=== PATIENT | female | born 1980 | race Caucasian/White ===

== ENCOUNTER 2016-08-09 18:46 | Inpatient (IN) | payer SELFPAY ==
[2016-08-09] MEDS: Lactated Ringer's 1,000 ML IV SCH (19:20)
[2016-08-09 19:25] VITALS: BMI 31.9
[2016-08-09 20:00] LABS: BASO % 0.2 % (0.0-2.0); EOS # 0.1 K/uL (0.0-0.7); EOS % 0.5 % (0.0-4.0); HEMATOCRIT 34.7 % (34.0-47.0); LYMPH # 2.5 K/uL (1.0-4.3); LYMPH % 22.8 % (20.0-40.0); MEAN CELL VOLUME 83.1 fL (81.0-99.0); MEAN CORPUSCULAR HEMOGLOBIN 27.6 pg (27.0-31.0); MEAN CORPUSCULAR HGB CONC 33.2 g/dL (33.0-37.0); MEAN PLATELET VOLUME 6.8 fL (7.2-11.7); MONO # 0.9 K/uL (0.0-0.8); MONO % 8.1 % (0.0-10.0); NRBC % 0.1 % (0.0-2.0); RED CELL DISTRIBUTION WIDTH 14.1 % (11.5-14.5); WHITE BLOOD COUNT 10.9 K/uL (4.8-10.8)
[2016-08-09 20:11] LABS: CHLORIDE 104 mmol/L (98-107)
--- NOTE | 2016-08-09 20:11 | OBADHP ---
Datetime: 08/09/2016 19:15 Admit Comment, IP Provider: Chief complaint-cramping, induction of labor HPI 35 y/o at40 wga here for idnuction of labor.patient denies nausea, vomiting, headache, ch est pain, shortness of breath.States that she is feeling cramps for last 3 days course AMA PMH denies PSH denies OBGYN HX ; NVDX1.Hx of 4th degree laceration.Weight 3.2 kg at Social hx denies tobacco,alcohol or illicit drug use Exam see exam section A/P 35 y/o at 40 wga being with c/o cramps.No active labor.Patient scheduled for induction du e to postdates -admit -see orders 8 pm Cervidil placed for cervival ripening continue to monitor closely Dr Turner aware Pelvic Type - PN: Adequate Extremities - PN: Normal Abdomen - PN: Normal Back - PN: Normal Lungs - PN: Normal Heart - PN: Normal Neurologic - PN: Normal General - PN: Normal Weight - Estimated: 3200 Presentation-Admit: Vertex Contraction Comments Provider: occ Gestation - Est Wks by US: 40.0 Vital Signs Provider: Reviewed; Within Normal Limits IP Chief Complaint: Uterine contractions FHR Category Provider Fetus A: Category I Genitourinary Exam: Normal DTRs - PN: Normal EGA AdmitDate IP: 40.0 IP Adm Impression: Postterm, intrauterine IP Admit Plan: Admit to unit; Initiate labor protocol
[2016-08-09 20:12] LABS: POTASSIUM 3.4 mmol/L (3.6-5.2); SODIUM 135 mmol/L (132-148)
[2016-08-09 20:14] LABS: GFR AFRICAN-AMERICAN > 60
[2016-08-09 20:15] LABS: ALKALINE PHOSPHATASE 90 U/L (38-126); ALT/SGPT 20 U/L (9-52); AST/SGOT 22 U/L (14-36); BILIRUBIN,TOTAL 0.5 mg/dL (0.2-1.3); BLOOD UREA NITROGEN 9 mg/dL (7-17); CALCIUM 8.9 mg/dl (8.6-10.4); CARBON DIOXIDE 20 mmol/L (22-30); GLUCOSE,RANDOM 104 mg/dL (65-105); TOTAL PROTEIN 6.3 g/dL (6.3-8.3)
[2016-08-09 20:20] LABS: RBC URINE < 1 /hpf (0-3); TRANSITIONAL EPITHIAL < 1 /hpf (0-3); URINE BACTERIA RARE (<OCC); URINE BILIRUBIN NEGATIVE (NEGATIVE); URINE BLOOD NEGATIVE (NEGATIVE); URINE COLOR Straw (YELLOW); URINE GLUCOSE (UA) NORMAL (Normal); URINE KETONE NEGATIVE (NEGATIVE); URINE PROTEIN NEGATIVE (NEGATIVE); URINE UROBILINOGEN NORMAL mg/dL (0.2-1.0); WBC URINE < 1 /hpf (0-5)
[2016-08-09 20:23] LABS: URINE LEUKOCYTE ESTERASE NEGATIVE Leu/uL (Negative)
[2016-08-10] MEDS ORDERED: Nalbuphine 20 mg/ml Inj (1 ml) IVP PRN (01:00)
[2016-08-10] MEDS: Lactated Ringer's 1,000 ML IV SCH (03:18)
[2016-08-10] MEDS ORDERED: Bupivacaine HCl 0.25% PF (10 ml) Inj ONE ×2 (07:56→20:13)
[2016-08-10] MEDS ORDERED: Bupivacaine 0.125%/FentaNYL 200 ML EPI ONE (07:57)
[2016-08-10] MEDS ORDERED: Oxytocin 30 UNIT 30 UNITS/500 ML BAG IV ONE (08:46)
[2016-08-10] MEDS ORDERED: ePHEDrine 50 mg/ml Inj ONE (09:12)
--- NOTE | 2016-08-10 09:28 | OBPN ---
Datetime: 08/10/2016 08:37 IP Progress Plan: Continue present management; Augmentation; Anesthesia consult; Anticipate Vaginal Delivery Membranes, Provider: Intact Contraction Comments Provider: 5-7 minutes FHR - Baseline A Provider: 130 Gestation - Est Wks by US: 40w 1d Presentation-Admit: Vertex IP Progress Note Comment: Cervidil due for removal. Patient interested in pain relief; pain scale 6/10 V.E. as above: posterior, medium consistency. Cervidil removed Assessment: 35 y.o. P1, 40w 1d, IOL; S/P cervidil x 1 - response as above. Categroy 1 traicng. Cli nically stable. Plan: 1) Epidural 2) Pitocin for augmentation 3) Anticipate vaginal deliveyr - Dr. Turner made aware Vital Signs Provider: Reviewed; Within Normal Limits NICHD Accel Fetus A IP Provider: 15X15 FHR Category Provider Fetus A: Category I NICHD Variability Prov Fetus A: Moderate 6-25bpm Dilatation, Provider: 2 Effacement, Provider: 30 Station, Provider: -3 NICHD Decel Fetus A IP Provider: None Datetime: 08/09/2016 19:15 Weight - Estimated: 3200
[2016-08-10] MEDS ORDERED: Oxytocin 30 UNIT 30 UNITS/500 ML BAG IV PRN (09:29)
--- NOTE | 2016-08-10 12:25 | OBPN ---
Datetime: 08/10/2016 12:16 IP Progress Impression: Normal progression of labor; Reassuring heart rate IP Informed Consent Obtain: Vaginal Delivery; Induction of Labor; Risks, Benefits and Alternatives D iscussed IP Procedures: Sterile Vag Exam IP Progress Plan: Continue present management; Induction; Anticipate Vaginal Delivery Membranes, Provider: Intact Contraction Comments Provider: Q 3min. FHR - Baseline A Provider: 130 Gestation - Est Wks by US: 40.0 Weight - Estimated: 3400 Presentation-Admit: Vertex IP Progress Note Comment: Labor Induction for Oligohydramnios. Latent Phase of Labor. Reassuring Fet al Status. Continue Pitocin. Patient has Epidural anesthesia. Anticipate . Vital Signs Provider: Reviewed; Within Normal Limits NICHD Accel Fetus A IP Provider: 15X15 FHR Category Provider Fetus A: Category I NICHD Variability Prov Fetus A: Moderate 6-25bpm Dilatation, Provider: 2-3 Effacement, Provider: 50 Station, Provider: -2 NICHD Decel Fetus A IP Provider: None
--- NOTE | 2016-08-10 15:13 | OBPN ---
Datetime: 08/10/2016 15:06 IP Progress Impression: Normal progression of labor IP Procedures: Artificial ROM IP Progress Plan: Continue present management; Augmentation; Anticipate Vaginal Delivery Membranes, Provider: Ruptured Amniotic Fluid Color, Provider: Clear Contraction Comments Provider: 1-2 FHR - Baseline A Provider: 150 Gestation - Est Wks by US: 40w 1d Presentation-Admit: Vertex IP Progress Note Comment: FHR noted for variable decelerations. S/P epidural; denies any pain. (+) v aginal pressure V.E. as above. AROM performed - copious amount of clear amnionic fluid obtained. Pitocin at 20 uni ts/min Assessment: 35 yo P1, 40w 1d, on pitocin - approppriate progress. Category 2 tracing. Observe. Plan: 1) Hold pitocin 2) IV bolus 3) oxygen by face mask 4) observe 5) Anticipate vaginal delivery - will advise Dr. Johnny PANDEY Accel Fetus A IP Provider: 15X15 FHR Category Provider Fetus A: Category II NICHD Variability Prov Fetus A: Moderate 6-25bpm Dilatation, Provider: 4-5 Effacement, Provider: 40 Station, Provider: -3 NICHD Decel Fetus A IP Provider: Variable
--- NOTE | 2016-08-10 15:50 | OBPN ---
Datetime: 08/10/2016 15:46 IP Progress Note Comment: Pitocin discontinued 1513; tracing observed x 30 minutes. Deceleration hav e not recurred Faselin now 150 bpm; (+) accels; (-) decels; (+0 moderate variability Assessment: Category 1 tacing Plan: 1) Restart pitocin 2) Anticipate vaginal delivery
--- NOTE | 2016-08-10 20:18 | OBPN ---
Datetime: 08/10/2016 20:11 IP Progress Impression: Normal progression of labor; Reassuring heart rate IP Informed Consent Obtain: Vaginal Delivery; Risks, Benefits and Alternatives Discussed IP Procedures: Sterile Vag Exam IP Progress Plan: Continue present management; Anticipate Vaginal Delivery Membranes, Provider: Ruptured Amniotic Fluid Color, Provider: Clear Contraction Comments Provider: Q2min. FHR - Baseline A Provider: 140 Gestation - Est Wks by US: 40.0 Weight - Estimated: 3400 Presentation-Admit: Vertex IP Progress Note Comment: Active Labor. Reassuring Status Vital Signs Provider: Reviewed; Within Normal Limits FHR Category Provider Fetus A: Category I NICHD Variability Prov Fetus A: Moderate 6-25bpm Dilatation, Provider: 8 Effacement, Provider: 100 Station, Provider: 0 NICHD Decel Fetus A IP Provider: Early
[2016-08-10] MEDS ORDERED: Lidocaine 2% Inj (20ml) ONE (22:24)
[2016-08-10] MEDS ORDERED: Benzocaine/Menthol 20%-0.5% Topical Spray (60 ml) TOP PRN (23:10)
--- NOTE | 2016-08-10 23:26 | OBDS ---
DELIVERY PERSONNEL Delivery Doctor: Pelon Turner MD Senior Instrumentation Engineer: Isha Alejandro RN Anesthesiologist: Nita Montaon MD MATERNAL INFORMATION Delivery Anesthesia: Epidural Provider Comments: TO A VIABLE BOY, 'S /9. LABOR SUMMARY EDC: 08/09/2016 00:00 No. Babies in Womb: 1 Attempted: No Labor Anesthesia: Epidural LABOR INFORMATION Reason for Induction: Postterm Onset of Labor: 08/10/2016 15:14 Complete Dilatation: 08/10/2016 22:02 Cervical Ripening Agents: Cervidil (Annotations: removed by Dr. Huertsa) Oxytocin: Induction Group B Beta Strep: Negative Steroids Given: None Reason Steroids Not Administered: Not Applicable MEMBRANES Membranes Rupture Method: Artificial Rupture of Membranes: 08/10/2016 15:02 Length of Rupture (hrs): 7.63 Amniotic Fluid Color: Clear Amniotic Fluid Amount: Moderate Amniotic Fluid Odor: Normal STAGES OF LABOR Stage 1 hrs: 6 Stage 1 min: 48 Stage 2 hrs: 0 Stage 2 min: 38 Stage 3 hrs: 0 Stage 3 min: 5 Total Time in Labor hrs: 7 Total Time in Labor min: 31 VAGINAL DELIVERY Episiotomy: Right Mediolateral Laceration Extension: N/A Laceration Type: None Laceration Repair: Yes Laceration Repair Note: Right mediolateral Episiotomy repaired with 2-0 chromic catgut. Sponge Count Correct: Yes BABY A INFORMATION Delivery Date/Time: 08/10/2016 22:40 Method of Delivery: Vaginal Born in Route : No : N/A Forceps: N/A Vacuum Extraction: N/A Shoulder Dystocia : No SHOULDER DYSTOCIA BABY A Delivery Date/Time: 08/10/2016 22:40 PRESENTATION/POSITION BABY A Presentation: Cephalic Cephalic Presentation: Vertex Vertex Position: Left Occipital Anterior Breech Presentation: N/A PLACENTA INFORMATION BABY A Placenta Delivery Time : 08/10/2016 22:45 Placenta Method of Delivery: Spontaneous Placenta Status: Delivered INFANT INFORMATION BABY A Gestational Age at Delivery: 40.1 Gestational Status: Term Infant Outcome : Liveborn Condition : Stable Sex: Male IDENTIFICATION/MEDS BABY A ID Band Number: [id number] ID Band Location: Left Leg; Left Arm Sensor Applied: Yes Sensor Number: [id number] Sensor Location : Cord Clamp Vitamin K Given : Aquamephyton 0.5 mg IM; Left Thigh Erythromycin Given: Given Both Eyes WEIGHT/LENGTH BABY A Infant Birthweight (gms): 3320 Weight (lb): 7 Weight (oz): 5 Infant Length Inches: 19.00 Length cms: 48.3 CORD INFORMATION BABY A No. Cord Vessels: 3 Nuchal Cord : N/A Cord Blood Taken: Yes Infant Suction: None IDENTIFICATION/MEDS BABY B ID Band Number : [id number] ID Band Location : Left Leg; Left Arm Sensor Applied: No Sensor Number : [id number] Sensor Location : Cord Clamp
[2016-08-11 07:54] LABS: HEMATOCRIT 33.7 % (34.0-47.0)
--- NOTE | 2016-08-11 08:55 | OBPPN ---
Datetime: 08/11/2016 08:48 PP Pain Prov: Within normal limits PP Pain Prov comment: Complains of cramps, lochia moderate PP Nausea Prov: Denies PP Flatus Prov: Yes PP BM Prov: Yes PP Breasts Prov: Normal PP Heart Prov: Normal PP Lungs Prov: Normal PP Abdomen/Uterus Prov: Normal PP Lochia Prov: Normal PP Vulva/Perineum Prov: Normal PP CVA Tenderness Prov: Normal PP Extremities Prov: Normal PP C/S Incision Prov: Not Applicable PP Progress Prov: Normal PP Comments Phys Exam Prov: Abdomen soft, nontender. Uterus firm and contracted. Lochia minimal PP Impression Prov: Normal progression PP Plan Prov: Continue present management PP Progress Note Prov: Stable . Anticipate discharge tomorrow. IP PP Procedures: None Vital Signs Provider PP: Reviewed; Within Normal Limits Vital Signs Provider Details PP: HgB 10.9
[2016-08-11] MEDS ORDERED: Multiple Vitamins Tab PO SCH (10:00)
[2016-08-11 16:06] VITALS: RESP 20
[2016-08-12 00:14] VITALS: BP 109/64; PULSE 88; TEMP 99.4; O2SAT 96
--- NOTE | 2016-08-12 07:21 | OBPPN ---
Datetime: 08/12/2016 07:18 PP Pain Prov: Within normal limits PP Nausea Prov: Denies PP Flatus Prov: Yes PP BM Prov: Yes PP Breasts Prov: Normal PP Heart Prov: Normal PP Lungs Prov: Normal PP Abdomen/Uterus Prov: Normal PP Lochia Prov: Normal PP Vulva/Perineum Prov: Normal PP CVA Tenderness Prov: Normal PP Extremities Prov: Normal PP C/S Incision Prov: Not Applicable PP Progress Prov: Normal PP Impression Prov: Normal progression PP Plan Prov: Discharge IP PP Procedures: None Vital Signs Provider PP: Reviewed; Within Normal Limits
--- NOTE | 2016-08-12 07:25 | OBDCSUM ---
Datetime: 08/12/2016 07:22 Disch Instr Activity: May be up to bathroom; May be up for meals; May Shower Disch Instr Diet: Regular Discharge Instructions, Provider: Routine instructions given Discharge Diagnosis, Provider: Term Delivered Discharge Time: 08/12/2016 07:22 Contraception discussed, Prov: Yes Disch Activity Restrictions: Minimize walking; Minimize stair-climbing; No sexual activity; Nothing in vagina - Ros[place], tampons, douche Discharge Diagnosis Prov Other: Contraception after Delivery: Undecided
== END 2016-08-12 19:00 | disposition home or self-care (01) | DRG 775 ==
LOC: C.EROB 18:46 → C.4D 19:08 → C.4M 08-11 01:00
PROVIDERS: ADMIT Obstetrics & Gynecology; ATTEND Obstetrics & Gynecology
PROC: 10E0XZZ Delivery of Products of Conception, External Approach (ICD-10-PCS; principal; 2016-08-10)
PROC: 3E0P7GC Introduction of Other Therapeutic Substance into Female Reproductive, Via Natural or Artificial Opening (ICD-10-PCS; 2016-08-10)
PROC: 3E033VJ Introduction of Other Hormone into Peripheral Vein, Percutaneous Approach (ICD-10-PCS; 2016-08-10)
PROC: 10907ZC Drainage of Amniotic Fluid, Therapeutic from Products of Conception, Via Natural or Artificial Opening (ICD-10-PCS; 2016-08-10)
PROC: 0W8NXZZ Division of Female Perineum, External Approach (ICD-10-PCS; 2016-08-10)
DX: O48.0 Post-term pregnancy (principal); O09.523 Supervision of elderly multigravida, third trimester; Z3A.40 40 weeks gestation of pregnancy